=== PATIENT | female | born 2000 | race African-American/Black ===

== ENCOUNTER 2022-06-12 01:07 | Emergency (ER) | payer SELFPAY | END 2022-06-12 01:38 | disposition still patient (30) | LOC: MW.ED 01:07 | DX: O9A.23 Injury, poisoning and certain other consequences of external causes complicating the puerperium (principal); S39.91XA Unspecified injury of abdomen, initial encounter; Z3A.32 32 weeks gestation of pregnancy; Y04.2XXA Assault by strike against or bumped into by another person, initial encounter | CPT/HCPCS: 99284 ==

== ENCOUNTER 2022-06-12 14:22 | Emergency (ER) | payer SELFPAY | END 2022-06-12 15:50 | LOC: MW.ED 14:22 | DX: O9A.23 Injury, poisoning and certain other consequences of external causes complicating the puerperium (principal); S39.91XA Unspecified injury of abdomen, initial encounter; Z3A.08 8 weeks gestation of pregnancy; Y04.0XXA Assault by unarmed brawl or fight, initial encounter | CPT/HCPCS: 99282 ==